=== PATIENT | female | born 1940 | race Caucasian/White ===

== ENCOUNTER 2016-10-10 18:48 | Inpatient (IN) | payer OTHER ==
--- NOTE | ~2016-10-10 | HP ---
History And Physical [facility] [id number] [place]. [address] NAME: CURTIS GARCIA : 42 STATUS : ADM Corey PAT#: [id number] AGE: 76 ADM/REG DATE : 10/10/16 MR#: [id number] REPORT SERV DATE: 10/11/16 DICTATED BY: CARLOS MARISCAL DATE: 10/11/16 REPORT STATUS : Draft TRANSCRIBED BY: MODAbhijeet DATE: 10/11/16 DATE OF ADMISSION: 10/10/2016 CHIEF COMPLAINT: A 76-year-old female presenting with increased depression and confusion. HISTORY OF PRESENTING ILLNESS: The patient's history was obtained through careful interview with the patient and son, coupled with review of [facility] medical records. The patient's last six months have been traumatic. She had a 30-year-old grandson pass away in 03/2016 from an overdose and then another 30-year-old grandson pass away in 07/2016 also from an overdose. Apparently, she has had almost an impossible time trying to recover from this grieving process and the family states that she has been crying every day expressing depression, but no suicidal ideation. She has developed anhedonia, fatigue, and has been inconsolable. There has also been concern about increasing dementia issues and disability otherwise. In 07/2015, she underwent a CABG and has never really fully recovered from that surgery. She used to be driving on her own and very social, and very active in her home, able to do for herself in every manner, but now is dependent for cooking, most house work. She no longer is able to drive and has had increasing dementia over this last year, apparently evaluated also by Dr. Garcia, neurologist. She has suffered urinary tract infections on and off. Over the last week in particular, she has had progressive confusion that has really alarmed the family and finally in the evening of admission, the patient was "in a fog" and decided to bring her to the hospital for further evaluation. She has chronic back pain from the middle lower back that radiates down her legs to her toes, an aching quality, 7/10 severity. No chest pain. No shortness of breath. No fevers or chills. No cough. No abdominal pain. No nausea or vomiting. No change of bowel or bladder habit now. REVIEW OF SYSTEMS: Otherwise, a 14-point review of systems was obtained and was negative. PAST MEDICAL HISTORY: 1. Coronary artery disease, status post CABG. 2. Atrial fibrillation. 3. COPD. 4. Depression and anxiety. 5. Diabetes. 6. Hypothyroidism. 7. Diverticulosis, seen by Dr. Liban Zheng. History And Physical [address] [address] NAME: CURTIS GARCIA : 42 STATUS : ADM Corey PAT#: [id number] AGE: 76 ADM/REG DATE : 10/10/16 MR#: [id number] REPORT SERV DATE: 10/11/16 DICTATED BY: CARLOS MARISCAL DATE: 10/11/16 REPORT STATUS : Draft TRANSCRIBED BY: TAQUERIA DATE: 10/11/16 8. DVT of the leg more than 40 years ago. 9. Alzheimer's dementia for about a year. PAST SURGICAL HISTORY: 1. CABG, 07/2015. 2. Cholecystectomy. 3. Appendectomy. 4. Hysterectomy. 5. Right rotator cuff repair. 6. Bladder repair. ALLERGIES: NO KNOWN DRUG ALLERGIES. SOCIAL HISTORY: Quit smoking more than 40 years ago. No alcohol abuse. Has been a for 11 years. Lives in [place], [place]. Living with her daughter now. FAMILY HISTORY: Diabetes, heart disease. Had two grandsons, both at 30 years of age from overdose, both within the last six months or so. CURRENT MEDICATIONS: Include aspirin 81 mg p.o. daily, Lipitor 40 mg p.o. daily, Coreg 6.25 mg p.o. b.i.d., Aricept 10 mg p.o. daily, hydralazine 50 mg p.o. b.i.d., hydrochlorothiazide 12.5 mg p.o. daily, Ativan p.r.n., metformin 500 mg p.o. daily, Remeron 15 mg p.o. q.h.s., Prilosec 20 mg p.o. b.i.d., Zofran p.r.n., potassium 10 mg p.o. daily, Effexor 150 mg in the morning and 75 mg at night. PHYSICAL EXAMINATION: VITAL SIGNS: Temperature 98.1, pulse 78, blood pressure 262/109, respiratory rate 16, and O2 saturation 98% on room air. GENERAL: A pleasant, cooperative female, in no evidence of distress. NEUROLOGICAL: Cranial nerves 2 through 12 are intact and symmetrical. The patient has 5/5 strength in upper and lower extremities that is symmetrical. HEENT: Pupils equal, round, and reactive to light. No conjunctival pallor. No scleral icterus. Nares are patent. Oropharynx is clear of obstruction. Moist mucous membranes. NECK: Trachea midline. No thyromegaly. LYMPH: No cervical lymphadenopathy. No supraclavicular lymphadenopathy. RESPIRATORY: Clear to auscultation at bases. No wheezes, rales, or rhonchi. Normal respiratory effort. CARDIOVASCULAR: Regular rate and rhythm. No murmurs, rubs, or gallops. No extremity edema is appreciated. ABDOMEN: Soft, nontender, nondistended. Normal bowel sounds auscultated throughout. No hepatosplenomegaly. DERMATOLOGICAL: Warm and dry extremities. No pallor. No cyanosis. PSYCHIATRIC: The patient has a flat affect. She admits to feeling depressed. No suicidal ideation. She is alert, but she is poorly oriented to details of time, but she is oriented to location and her recent history. LABORATORY DATA: White blood cell count 7.4, hemoglobin 12, hematocrit 36, platelets 246. History And Physical [address] [address] NAME: CURTIS GARCIA : 42 STATUS : ADM Corey PAT#: [id number] AGE: 76 ADM/REG DATE : 10/10/16 MR#: [id number] REPORT SERV DATE: 10/11/16 DICTATED BY: CARLOS MARISCAL DATE: 10/11/16 REPORT STATUS : Draft TRANSCRIBED BY: MODL DATE: 10/11/16 Sodium 138, potassium 3.7, chloride 102, bicarb 30, BUN 17, creatinine 0.95, glucose 90. Urinalysis shows trace leukocyte esterase, positive nitrites, only 4 white blood cells. Troponin 0.06. Brain natriuretic peptide 216. INR 1.1. Liver enzymes within normal limits urine. STUDIES: 1. Chest x-ray by my own evaluation shows small bilateral pleural effusions, slight linear atelectasis. 2. EKG by my own evaluation shows sinus rhythm, left bundle-branch block. 3. CT scan of the brain without contrast shows no acute intracranial process. ASSESSMENT AND PLAN: 1. Encephalopathy with possible progressive dementia. We will ask for Neurology consult. 2. Depression. We will try and switch depression medication to Celexa. Obtain a Psychiatric consult with Dr. Chatman, question possible Effexor-induced hypertensive urgency? 3. Chronic obstructive pulmonary disease. 4. Hypertensive urgency. Discontinue Effexor. Increase Coreg dose. Increase hydralazine dose. Use p.r.n. medications. KPL/MODL Carlos Mariscal M.D. / [id number] CC: Kristian Scruggs Jr, MD Sharon Farber, M.D. Richard Peters, M.D.
--- NOTE | ~2016-10-10 | DS ---
Discharge Summary [facility] [address] [place]. [address] NAME: CURTIS GARCIA : 42 STATUS : DIS Corey PAT#: [id number] AGE: 76 ADM/REG DATE : 10/10/16 MR#: [id number] REPORT SERV DATE: 10/13/16 DICTATED BY: RELL CHAVEZ DATE: 10/12/16 REPORT STATUS : Draft TRANSCRIBED BY: MODL DATE: 10/12/16 ADMISSION DATE: 10/10/2016 DISCHARGE DATE: 10/12/2016 DISCHARGE DIAGNOSES: 1. Hypothyroidism with TSH level of 49.3. 2. Encephalopathy and depression likely secondary to above. 3. Chronic obstructive pulmonary disease. 4. Hypertensive urgency with better controlled blood pressures during her hospital stay. 5. History of atrial fibrillation. 6. Diabetes. 7. Coronary artery disease. CONSULTS: None. PROCEDURES: None. HOSPITAL COURSE: This is a 76-year-old lady who was admitted to the hospital with progressive encephalopathy. For details, please refer to H and P by Dr. Peters. Initially, there was a concern for possible progressive dementia as well as developing depression; however, by the second of the hospital stay, the patient's labs resulted with TSH level of almost 50. It was quite clear that her symptoms were caused by uncontrolled hypothyroidism. Upon questioning, the patient does have a history of hypothyroidism and for unclear reasons, the patient has not been taking her Synthroid where she used to take Synthroid in the past. The patient thinks that she was discontinued of the Synthroid by her primary care physician; however, this cannot be verified at this time. The patient was started on 75 mcg of daily Synthroid and she is not being discharged home in stable condition. One of her presenting problem was hypertensive urgency where her blood pressure which showed up into 200s systolic. Hydralazine was increased from 50 b.i.d. to 100 mg t.i.d. and that seemed to have controlled her blood pressure is a lot better. Again, the patient will need to follow up closely as an outpatient for more consistent and better blood pressure control. DISPOSITION: Home. DISCHARGE MEDICATIONS: 1. Increasing hide hydralazine from 50 mg p.o. b.i.d. to 100 mg p.o. t.i.d. 2. Starting Synthroid 75 mcg p.o. daily otherwise, no changes. FOLLOWUP: Please follow up with PCP in the next one to two weeks. A total of 25 minutes spent in coordinating this patient's discharge today. TIFFANIE/TAQUERIA Discharge Summary [address] [facility] [place] [address] NAME: DAYSI GARCIAJOSIAH RIVERAH : 42 STATUS : DIS Corey PAT#: [id number] AGE: 76 ADM/REG DATE : 10/10/16 MR#: [id number] REPORT SERV DATE: 10/13/16 DICTATED BY: RELL CHAVEZ DATE: 10/12/16 REPORT STATUS : Draft TRANSCRIBED BY: TAQUERIA DATE: 10/12/16 Rell Chavez MD / [id number] CC: MD Mando Rachel M.D.
[2016-10-10 18:08] LABS: BASOPHILS 0.7 %; BASOPHILS ABSOLUTE 0.05 10/3/uL (0.0-0.16); EOSINOPHILS 1.9 %; EOSINOPHILS ABSOLUTE 0.14 10/3/uL (0.0-0.53); ER CBC TAT 0 Hrs 05 Mins; IMMATURE GRANULOCYTES 0.7 %; IMMATURE GRANULOCYTES ABSOLUTE 0.05 10/3/uL (0.0-0.11); LYMPHOCYTES 26.1 %; LYMPHOCYTES ABSOLUTE 1.93 10/3/uL (0.67-4.30); MEAN CORPUSCULAR HEMOGLOB 28.8 pg (26.0-34.0); MEAN CORPUSCULAR VOLUME 86.4 fL (80-100); MEAN PLATELET VOLUME 8.6 fL (9.2-13.0); MONOCYTES 10.3 %; MONOCYTES ABSOLUTE 0.76 10/3/uL (0.21-1.20); NEUTROPHILS 60.3 %; NEUTROPHILS ABSOLUTE 4.47 10/3/uL (2.02-8.40); PLATELET COUNT 246 10/3/uL (150-400); WHITE BLOOD CELLS 7.4 10/3/uL (4.5-10.5)
[2016-10-10 18:11] LABS: HEMATOCRIT 35.7 % (36.0-48.0); HEMOGLOBIN 11.9 g/dL (12.0-16.0); MANUAL DIFF NO %; MEAN CORPUS HGB CONC 33.3 g/dL (32.0-36.0); RED CELL COUNT 4.13 10/6/uL (4.0-5.6)
[2016-10-10 18:15] LABS: INTERNATIONAL NORMAL RATI 1.1 UNITS (-); PARTIAL THROMBO TIME 33.2 SEC (22.5-37.2)
[2016-10-10 18:26] LABS: CALCIUM, SERUM 9.4 MG/DL (8.5-10.4); CHLORIDE, SERUM 102 MMOL/L (96-112); CO2 (CARBON DIOXIDE) 30 MMOL/L (24-34); CREATININE 0.95 MG/DL (0.55-1.02); DIRECT BILIRUBIN 0.1 MG/DL (0.0-0.4); GFR AFRICAN AMERICAN 68 ML/MIN (>=60); GFR NON AFRICAN AMERICAN 59 ML/MIN (>=60); INDIRECT BILIRUBIN(NOT ORDER) 0.4 MG/DL (0.1-0.9); POTASSIUM, SERUM 3.7 MMOL/L (3.5-5.3); SGOT(AST) 28 U/L (5-40); SGPT(ALT) 23 U/L (5-65); SODIUM, SERUM 138 MMOL/L (135-148); TOTAL BILIRUBIN 0.5 MG/DL (0-1.2)
[2016-10-10 18:29] LABS: ALBUMIN 3.8 G/DL (3.5-5.0); ALKALINE PHOSPHATASE 99 U/L (45-117); BUN (BLOOD UREA NITROGEN) 17 MG/DL (6-23); GLUCOSE, SERUM 90 MG/DL (60-99); TOTAL PROTEIN 7.8 G/DL (6.0-8.5)
[2016-10-10 18:32] LABS: CHEST PAIN PROFILE TAT 0 Hrs 29 Mins; TROPONIN I 0.06 NG/ML (<0.05)
[~2016-10-10 18:48] MED LIST: ACET500CAP PO; APRES50 PO; ARICEPT10 PO; ASAB PO; ATV.5 PO; BUSPAR15 M1 PO; BUSPAR30 MG PO; CAT2 PO; COLCH6 PO; COLCRYS0.6 MG PO; CORDARONE PO; COREG6 PO; DYAZIDE1 CAP PO; EFFEX75 PO; ELIQUIS 5 MG TAB5 MG PO; GLUCPH PO; HALF81 PO; IMDUR30 PO; KLOR-CON M1010 MEQ PO; KLOR-CON M2020 MEQ PO; LEVOTHYROXIN88 MCG PO; LIPITOR40 PO; LYRICA75 PO; MAGOX4 PO; MAX25 PO; MICROZIDE PO; NATURA2 OPH; NEXIUM40 PO; NORV10 PO; PLAVIX PO; PRILO PO; PRIN10 PO; PRIN20 PO; REM15 PO; TOPXL25 PO; TOPXL50 PO; TRAVATAN OPH; ULTRAM50 PO; VITAMIN D1000 UNI1 PO; VITC500 PO; X25 PO; ZIAC5 PO; ZOCOR40 PO; ZOFRAN4 PO; ZOFRAN8 PO
[2016-10-10 18:59] LABS: ASCORBIC ACID (UR NOT ORDER) NEG (NEG); BILIRUBIN, URINE NEGATIVE (NEG); ER URINALYSIS TAT 0 Hrs 10 Mins; KETONE, URINE NEGATIVE (NEG); LEUKOCYTE ESTERASE(NOT OR TRACE (NEG); NITRITE (URINE) POS (NEG); WBC (NOT ORDERED) (RFLEX) 4 (0-5)
[2016-10-11 04:23] LABS: PARTIAL THROMBO TIME 32.6 SEC (22.5-37.2)
[2016-10-11 04:24] LABS: BASOPHILS 0.4 %; BASOPHILS ABSOLUTE 0.03 10/3/uL (0.0-0.16); EOSINOPHILS 0.8 %; EOSINOPHILS ABSOLUTE 0.07 10/3/uL (0.0-0.53); HEMATOCRIT 36.2 % (36.0-48.0); HEMOGLOBIN 12.1 g/dL (12.0-16.0); IMMATURE GRANULOCYTES 0.5 %; IMMATURE GRANULOCYTES ABSOLUTE 0.04 10/3/uL (0.0-0.11); LYMPHOCYTES ABSOLUTE 1.09 10/3/uL (0.67-4.30); MANUAL DIFF NO %; MEAN CORPUS HGB CONC 33.4 g/dL (32.0-36.0); MEAN CORPUSCULAR HEMOGLOB 28.9 pg (26.0-34.0); MEAN CORPUSCULAR VOLUME 86.4 fL (80-100); MEAN PLATELET VOLUME 8.8 fL (9.2-13.0); MONOCYTES ABSOLUTE 0.59 10/3/uL (0.21-1.20); NEUTROPHILS 78.3 %; NEUTROPHILS ABSOLUTE 6.57 10/3/uL (2.02-8.40); PLATELET COUNT 242 10/3/uL (150-400); RBC DISTRIBUTION WIDTH 14.9 % (12.0-16.0); RED CELL COUNT 4.19 10/6/uL (4.0-5.6); WHITE BLOOD CELLS 8.4 10/3/uL (4.5-10.5)
[2016-10-11 04:29] LABS: INTERNATIONAL NORMAL RATI 1.2 UNITS (-); PROTIME (NOT ORD) 14.9 SEC (12.0-14.5)
[2016-10-11 04:49] LABS: ALBUMIN 3.7 G/DL (3.5-5.0); ALKALINE PHOSPHATASE 91 U/L (45-117); BUN (BLOOD UREA NITROGEN) 16 MG/DL (6-23); CALCIUM, SERUM 9.5 MG/DL (8.5-10.4); CHLORIDE, SERUM 105 MMOL/L (96-112); CO2 (CARBON DIOXIDE) 27 MMOL/L (24-34); CREATININE 1.07 MG/DL (0.55-1.02); FREE T4 0.61 NG/DL (0.76-1.46); GFR AFRICAN AMERICAN 59 ML/MIN (>=60); GFR NON AFRICAN AMERICAN 51 ML/MIN (>=60); GLOBULIN 3.6 G/DL (2.5-4.1); SGOT(AST) 23 U/L (5-40); SGPT(ALT) 18 U/L (5-65); SODIUM, SERUM 141 MMOL/L (135-148); TOTAL BILIRUBIN 0.7 MG/DL (0-1.2); TOTAL PROTEIN 7.3 G/DL (6.0-8.5)
[2016-10-11 04:54] LABS: GLUCOSE, SERUM 127 MG/DL (60-99); TROPONIN I 0.17 NG/ML (<0.05)
[2016-10-11 05:16] LABS: PROCALCITONIN <0.05 ng/mL (<0.5)
[2016-10-12 03:55] LABS: BASOPHILS 0.3 %; BASOPHILS ABSOLUTE 0.03 10/3/uL (0.0-0.16); EOSINOPHILS 1.7 %; EOSINOPHILS ABSOLUTE 0.15 10/3/uL (0.0-0.53); HEMATOCRIT 37.2 % (36.0-48.0); IMMATURE GRANULOCYTES 0.5 %; IMMATURE GRANULOCYTES ABSOLUTE 0.04 10/3/uL (0.0-0.11); LYMPHOCYTES 17.3 %; LYMPHOCYTES ABSOLUTE 1.53 10/3/uL (0.67-4.30); MEAN CORPUS HGB CONC 32.3 g/dL (32.0-36.0); MEAN CORPUSCULAR HEMOGLOB 28.4 pg (26.0-34.0); MEAN CORPUSCULAR VOLUME 88.2 fL (80-100); MEAN PLATELET VOLUME 8.7 fL (9.2-13.0); MONOCYTES 8.7 %; MONOCYTES ABSOLUTE 0.77 10/3/uL (0.21-1.20); NEUTROPHILS 71.5 %; NEUTROPHILS ABSOLUTE 6.34 10/3/uL (2.02-8.40); PLATELET COUNT 236 10/3/uL (150-400); RED CELL COUNT 4.22 10/6/uL (4.0-5.6); WHITE BLOOD CELLS 8.9 10/3/uL (4.5-10.5)
[2016-10-12 03:56] LABS: MANUAL DIFF NO %
[2016-10-12 04:08] LABS: CALCIUM, SERUM 9.4 MG/DL (8.5-10.4); CHLORIDE, SERUM 104 MMOL/L (96-112); CO2 (CARBON DIOXIDE) 30 MMOL/L (24-34); CREATININE 1.22 MG/DL (0.55-1.02); GFR AFRICAN AMERICAN 50 ML/MIN (>=60); GFR NON AFRICAN AMERICAN 43 ML/MIN (>=60); GLUCOSE, SERUM 122 MG/DL (60-99); POTASSIUM, SERUM 3.8 MMOL/L (3.5-5.3); SODIUM, SERUM 136 MMOL/L (135-148)
[2016-10-12 04:14] LABS: BUN (BLOOD UREA NITROGEN) 21 MG/DL (6-23)
[2016-10-12] MEDS ORDERED: HYDRALAZINE100 MG PO (11:07)
[2016-10-12] MEDS ORDERED: LEVOTHYROXIN75 MCG PO (11:09)
== END 2016-10-12 11:38 | disposition home or self-care (01) | DRG 643 ==
LOC: ER 18:48 → CDU1 20:55 → CDU2 21:38
PROVIDERS: Emergency Medicine; Hospitalist; Internal Medicine
DX: E03.9 Hypothyroidism, unspecified (principal); G93.41 Metabolic encephalopathy; I48.91 Unspecified atrial fibrillation; J44.9 Chronic obstructive pulmonary disease, unspecified; I16.0 Hypertensive urgency; E11.9 Type 2 diabetes mellitus without complications; I25.10 Atherosclerotic heart disease of native coronary artery without angina pectoris; Z87.440 Personal history of urinary (tract) infections; Z95.1 Presence of aortocoronary bypass graft; K57.90 Diverticulosis of intestine, part unspecified, without perforation or abscess without bleeding; Z86.718 Personal history of other venous thrombosis and embolism; Z87.891 Personal history of nicotine dependence; Z83.3 Family history of diabetes mellitus; Z90.710 Acquired absence of both cervix and uterus; Z90.49 Acquired absence of other specified parts of digestive tract; Z79.82 Long term (current) use of aspirin; Z79.84 Long term (current) use of oral hypoglycemic drugs
CPT/HCPCS: 70450; 71010; 71020; 80048; 80053; 80076; 81001; 82140; 82962; 83735; 83880; 84145; 84439; 84443; 84484; 85025; 85610; 85730; 93005; 96374; 96375; 99291; A9270-GY; J0360